=== PATIENT | female | born 1945 | race Caucasian/White ===

== ENCOUNTER 2024-03-04 12:24 | Day surgery (SDC) | payer MEDICARE, BC ==
[~2024-03-04] VITALS: Ht 165.1 cm; Wt 104.0 kg
[~2024-03-04 12:24] MED LIST: ATOR80TA PO; FERR325T29 PO; HYDR25TA5 PO; LISI10TA27 PO; OMEP40CA21 PO; POTA-206
[2024-03-04 13:01] VITALS: BP 149/78; PULSE 77; RESP 28
[2024-03-04] MEDS ORDERED: fentaNYL/PF 50MCG/1 ML 2ML syringe ONE (15:36)
[2024-03-04] MEDS ORDERED: diphenhydrAMINE 50 mg/ml inj ONE (15:36)
[2024-03-04] MEDS ORDERED: MIDAZolam 1 MG/ML 5ML VIAL ONE (15:36)
[2024-03-04] MEDS ORDERED: LIDOcaine 2% Viscous 15ml cup ONE (15:36)
[2024-03-04 16:15] VITALS: BP 113/55; PULSE 76; RESP 12; O2SAT 96
[2024-03-04 16:25] VITALS: BP 103/51; PULSE 73; RESP 15; O2SAT 96
[2024-03-04 16:35] VITALS: BP 105/54; PULSE 70; RESP 18; O2SAT 98
[2024-03-04 16:45] VITALS: BP 107/47; PULSE 67; RESP 20; O2SAT 96
[2024-03-04 16:55] VITALS: BP 126/50; PULSE 98; RESP 16; O2SAT 97
== END 2024-03-04 17:00 | disposition home or self-care (01) ==
LOC: GI LAB 12:24
PROVIDERS: ATTEND Internal Medicine Gastroenterology
DX: D50.0 Iron deficiency anemia secondary to blood loss (chronic) (principal); R19.5 Other fecal abnormalities; K44.9 Diaphragmatic hernia without obstruction or gangrene; K29.70 Gastritis, unspecified, without bleeding; K57.30 Diverticulosis of large intestine without perforation or abscess without bleeding
CPT/HCPCS: 43239; 99153; A4620; G0121; G0500; J1200; J2250; J3010; J7030; Z7512; 45378; 99152